=== PATIENT | male | born 1955 | race Caucasian/White ===

== ENCOUNTER → 2016-06-16 | Day surgery (SDC) | payer MEDICARE, MEDICAID ==
[~2016-06-16] VITALS: Ht 175.3 cm; Wt 71.4 kg
[~2016-06-16] MED LIST: CARAFATE1 GM PO; CENTRAVITES TA1 EACH PO; CLARITIN10 M2 PO; DIOVAN160 MG PO; PROTONIX40 MG PO; SINGULAIR10 MG PO; TOLTERODINE TART4 MG PO; ZOLOFT25 MG PO
== END ==
LOC: GOPP 06-11 08:00 → GEND 08:09
PROC: 0DJ08ZZ Inspection of Upper Intestinal Tract, Via Natural or Artificial Opening Endoscopic (ICD-10-PCS; principal; 2016-06-16)
DX: K20.9 Esophagitis, unspecified (principal); K29.70 Gastritis, unspecified, without bleeding; K44.9 Diaphragmatic hernia without obstruction or gangrene; K29.80 Duodenitis without bleeding; Z88.2 Allergy status to sulfonamides; Z79.899 Other long term (current) drug therapy
CPT/HCPCS: J2001; J7030